=== PATIENT | male | born 1950 | race Caucasian/White ===

== ENCOUNTER → 2018-03-22 | Day surgery (SDC) | payer MEDICARE ==
[~2018-03-22] MED LIST: DEXAMETHASONE SOD PHOS 20 MG/5 ML VIAL.; IV RINGERS,LACTATED 1000ML 1,000 ML IV; LIDOCAINE 1% PF 2 ML VIAL. ID; LIDOCAINE 2% JELLY 6ML IN APPLICATOR.; LIDOCAINE 2% PF Vial for OR 5 ML VIAL.; MORPHINE SULFATE 2 MG/ML DISP.SYRIN. IV; ONDANSETRON PF 4 MG/2 ML VIAL.; ONDANSETRON PF 4 MG/2 ML VIAL. IV; PROCHLORPERAZINE 10 MG/2 ML VIAL. IV; PROPOFOL 20 ML IV; SEVOFLURANE 61 TO 120 MINUTES. IH; fentaNYL PF VIAL 100 MCG/2 ML VIAL; fentaNYL PF VIAL 100 MCG/2 ML VIAL IV
[2018-03-22] MEDS: IV RINGERS,LACTATED 1000ML 1,000 ML IV (14:25)
[2018-03-22] MEDS: CIPROFLOXACIN 400MG PREMIX 200 ML IV (15:15)
[2018-03-22] MEDS: IOHEXOL 300 MG/ML 100ML VIAL. (15:53)
[2018-03-22] MEDS: fentaNYL PF VIAL 100 MCG/2 ML VIAL IV (16:40)
[2018-03-22] MEDS: HYDROmorphone 2 MG TABLET PO (17:01)
== END | disposition home or self-care (01) ==
LOC: SURG 13:37
DX: N20.1 Calculus of ureter (principal); N35.9 Urethral stricture, unspecified; I10 Essential (primary) hypertension; E78.00 Pure hypercholesterolemia, unspecified; Z90.49 Acquired absence of other specified parts of digestive tract; Z87.442 Personal history of urinary calculi; N40.0 Benign prostatic hyperplasia without lower urinary tract symptoms; Z72.89 Other problems related to lifestyle; Z87.891 Personal history of nicotine dependence; Z88.1 Allergy status to other antibiotic agents; Z98.890 Other specified postprocedural states; Z79.899 Other long term (current) drug therapy
CPT/HCPCS: 52332; 74420; A7015; C1769; C2617; J0744; J1100; J2001; J2405; J2704; J3010; Q9967